=== PATIENT | female | born 1995 | race Asian ===

== ENCOUNTER 2018-09-21 14:49 | Emergency (ER) | payer OTHER ==
[~2018-09-21] VITALS: Ht 157.5 cm; Wt 61.2 kg
[2018-09-21 15:55] LABS: ABSOLUTE NEUTROPHILS 2.1 thou/uL (1.4-8.2); BASOPHILS 0.5 % (0.0-2.0); EOSINOPHILS 15.6 % (0.0-3.0); HEMATOCRIT 39.1 % (37.0-47.0); HEMOGLOBIN 12.9 gm/dL (12.0-15.0); LYMPHOCYTES 33.2 % (24.0-44.0); MCH 28.6 pg (26.0-34.0); MCV 86.7 fL (80.0-100.0); MONOCYTES 10.3 % (1.0-8.0); PLATELET COUNT 300 thou/uL (150-400); POLYS 40.4 % (36.0-66.0); RBC 4.51 mil/uL (4.20-5.00); RDW 13.6 % (10.5-14.5); WBC 5.3 thou/uL (4.0-11.0)
[2018-09-21 15:58] LABS: CALCIUM 8.5 mg/dL (8.5-10.1); CREATININE 0.8 mg/dL (0.6-1.0); POTASSIUM 3.7 mmol/L (3.5-5.1)
[2018-09-21 16:40] VITALS: BP 109/66
[2018-09-21] MEDS ORDERED: KEFLEX500 M1 PO ×2 (16:41→16:42)
[2018-09-21] MEDS ORDERED: PHENAZOPYRIDIN200 M2 PO (16:41)
== END 2018-09-21 16:40 | disposition home or self-care (01) ==
LOC: ER 14:49
PROVIDERS: Physician Assistant
DX: L03.115 Cellulitis of right lower limb (principal)